=== PATIENT | male | born 1990 | race Caucasian/White ===

== ENCOUNTER 2018-02-28 14:15 | Emergency (ER) | payer OTHER ==
[~2018-02-28] VITALS: Ht 177.8 cm; Wt 106.6 kg
[2018-02-28 14:25] VITALS: Ht 177.8 cm; Wt 106.6 kg
[2018-02-28 15:03] VITALS: BP 138/67
== END 2018-02-28 15:03 | disposition home or self-care (01) ==
LOC: ED 14:15
DX: Z02.79 Encounter for issue of other medical certificate (principal)